=== PATIENT | male | born 1990 | race Caucasian/White ===

== ENCOUNTER 2020-08-05 11:45 | Emergency (ER) | payer OTHER ==
[~2020-08-05 11:45] MED LIST: NAPROXEN500 MG PO; SKELAXIN800 MG PO
[2020-08-05] MEDS ORDERED: NORCO 5-325 TA1 EACH PO (14:59)
== END 2020-08-05 13:50 | disposition home or self-care (01) ==
LOC: FER 11:45
DX: S62.326A Displaced fracture of shaft of fifth metacarpal bone, right hand, initial encounter for closed fracture (principal); W22.01XA Walked into wall, initial encounter; Y92.009 Unspecified place in unspecified non-institutional (private) residence as the place of occurrence of the external cause
CPT/HCPCS: 73110; 73130

== ENCOUNTER 2020-12-25 19:38 | Emergency (ER) | payer OTHER ==
[~2020-12-25 19:38] MED LIST changes: +NORCO 5-325 TA1 EACH PO
[2020-12-25 20:23] LABS: BASOPHIL 0.7 % (0-2); EOSINOPHIL 2.5 % (0-5); HCT 45.6 % (42.0-52.0); HGB 15.5 g/dl (13.2-18.0); LYMPHOCYTE 27.9 % (15-48); MCH 29.3 pg (25.0-31.0); MCV 86.2 fL (78.0-100.0); MPV 11.7 fL (6.0-9.5); NEUTROPHIL 58.7 % (41-80); NRBC 0; PLT 214 K/uL (150-400); RBC 5.29 M/uL (4.70-6.00); RDW 11.5 % (11.5-14.0)
[2020-12-25 20:42] LABS: ALBUMIN 4.3 g/dL (3.4-5.0); BILIRUBIN - TOTAL 0.8 mg/dL (0.2-1.0); BUN/CREAT RATIO (CALC) 15.8 RATIO; CREATININE 1.01 mg/dL (0.67-1.17); GLOBULIN (CALCULATION) 2.9 g/dL; POTASSIUM 3.6 mmol/L (3.5-5.1); TOTAL PROTEIN 7.2 g/dL (6.4-8.2)
[2020-12-25] MEDS ORDERED: BENTYL10 MG PO (22:13)
[2020-12-25] MEDS ORDERED: ONDANSETRON ODT4 MG PO (22:13)
[2020-12-25] MEDS ORDERED: LEVSIN-SL0.125 M1 SL (22:36)
== END 2020-12-25 22:55 | disposition home or self-care (01) ==
LOC: FER 19:38
PROVIDERS: Internal Medicine
DX: R10.11 Right upper quadrant pain (principal); R11.2 Nausea with vomiting, unspecified; R19.7 Diarrhea, unspecified; Z88.8 Allergy status to other drugs, medicaments and biological substances
CPT/HCPCS: 36415; 80053; 83690; 84145; 85025; 93005; J1170; J2405; J7120; Q9967